=== PATIENT | male | born 1970 | race Caucasian/White ===

== ENCOUNTER 2016-12-12 09:48 | Emergency (ER) | payer OTHER ==
[2016-12-12 10:05] VITALS: BP 140/103; PULSE 80; RESP 18; TEMP 98.8; O2SAT 96
[2016-12-12] MEDS ORDERED: NS 1,000 ML IV ONE (10:07)
--- NOTE | 2016-12-12 10:10 | EDPHY ---
H & P Chief Complaint Nursing Narrative: LLQ ABD PAIN STARTED 6AM WITH LEFT FLANK PAIN , RADIATION TO LEFT GROIN, +NAUSEA, DENIES FEVERS. CONCERNED FOR KIDNEY STONE Time Seen by Provider: 12/12/16 09:59 HPI/ROS: CHIEF COMPLAINT: Abdominal pain HISTORY OF PRESENT ILLNESS: Patient is a 46-year-old man who comes to the Urgent Care complaining of left lower quadrant pain that radiates to his groin. He also has lower back pain bilaterally. He states that it began around 6:00 a.m. this morning. He has been nauseous but has not vomited. He states that this is happened about 3 or 4 times before and typically resolve after a few hours. He presented here once before and was diagnosed with a probable kidney stone. He has never had any imaging done. He has not had a fever. No rash. No trauma. Neurologic deficits. REVIEW OF SYSTEMS: Constitutional: denies: chills, fever, recent illness, recent injury EENTM: denies: blurred vision, double vision, nose congestion Respiratory: denies: cough, shortness of breath Cardiac: denies: chest pain, irregular heart rate, lightheadedness, palpitations Gastrointestinal/Abdominal: See HPI Genitourinary: denies: dysuria, frequency, hematuria, pain Musculoskeletal: denies: joint pain, muscle pain Skin: denies: lesions, rash, jaundice, bruising Neurological: denies: headache, numbness, paresthesia, tingling, dizziness, weakness Hematologic/Lymphatic: denies: blood clots, easy bleeding, easy bruising Immunologic/allergic: denies: HIV/AIDS, transplant EXAM: GENERAL: Well-appearing, well-nourished and in no acute distress. HEAD: Atraumatic, normocephalic. EYES: Pupils equal round and reactive to light, extraocular movements intact, sclera anicteric, conjunctiva are normal. ENT: TMs normal, nares patent, oropharynx clear without exudates. Moist mucous membranes. NECK: Normal range of motion, supple without lymphadenopathy or JVD. LUNGS: Breath sounds clear to auscultation bilaterally and equal. No wheezes rales or rhonchi. HEART: Regular rate and rhythm without murmurs, rubs or gallops. ABDOMEN: Moderate left lower quadrant tenderness, normal exam, BACK: Bilateral CVA pain, no tenderness EXTREMITIES: Normal range of motion, no pitting or edema. No clubbing or cyanosis. NEUROLOGICAL: Cranial nerves II through XII grossly intact. Normal speech, normal gait. 5/5 strength, normal movement in all extremities, normal sensation PSYCH: Normal mood, normal affect. SKIN: Warm, dry, normal turgor, no visible rashes or lesions. Source: Patient Exam Limitations: No limitations - Medical/Surgical History Hx Asthma: No Hx Chronic Respiratory Disease: No Hx Diabetes: No Hx Cardiac Disease: No Hx Renal Disease: No Hx Cirrhosis: No Hx Alcoholism: No Hx HIV/AIDS: No Hx Splenectomy or Spleen Trauma: No Other PMH: Frequent ear infections as a child,. surg-tonsilectomy,oral - Family History Significant Family History: No pertinent family hx - Social History Smoking Status: Never smoked Alcohol Use: None Drug Use: None Constitutional: Initial Vital Signs Temperature (C) 37.1 C 12/12/16 09:55 Heart Rate 80 12/12/16 09:55 Respiratory Rate 18 12/12/16 09:55 Blood Pressure 140/103 H 12/12/16 09:55 O2 Sat (%) 96 12/12/16 09:55 O2 Delivery Mode Room Air Allergies/Adverse Reactions: No Known Allergies Allergy (Verified 12/12/16 10:01) Home Medications: Medication Instructions Recorded No Medications [No Meds] 09/08/13 Amoxicillin/Clavulanate Pot 875 mg PO BID #14 tab 12/12/16 [Augmentin 875Mg] Medical Decision Making - Diagnostics Imaging: Imaging Impressions Abdomen/Pelvis CT 12/12/16 10:08 Impression: 1. Sigmoid diverticulosis without definite evidence of diverticulitis. 2. Mild diffuse bladder wall thickening, which could be related to underdistention or inflammation. 3. Moderate stool in the proximal colon. 4. No renal stones or obstructive uropathy. 5. Mild annular bulges at L4-L5 and L5-S1. 6. Additional findings as above. Findings discussed with Zach Vieira on December 12, 2016 at 11:01 a.m. Attention: This CT examination is specifically designed to evaluate patients who are clinically suspected of having acute obstructive uropathy. This examination does not use radiographic contrast, and as such, provides only a limited evaluation of the abdomen, pelvis and retroperitoneum. If there is further clinical suspicion for pathological conditions other than obstructive uropathy, a complete CT evaluation of the abdomen and pelvis utilizing intravenous and oral contrast should be considered. ED Course/Re-evaluation: Patient declines pain or nausea medications. I will obtain a CT scan to confirm the diagnosis of what is likely a kidney stone. Will also obtain lab work and urinalysis. 11:10 a.m. the patient states that his symptoms have resolved. His abdominal exam is nontender. His CT scan shows diverticulitis but no obvious diverticulitis. No kidney stone. No blood in his urine. Because of his tenderness and location of the pain I will treat him for diverticulitis although it is likely mild. He may have passed the stone although there is typically evidence of blood in the urine. He understands that the diagnosis is not specific. He is happy with this plan and declines further workup or testing. He will follow up within 24 hours if his symptoms return. Differential Diagnosis: Partial list of the Differential diagnosis considered include but were not limited to; diverticulitis, kidney stone, urinary tract infection and although unlikely based on the history and physical exam, I also considered low back pain , sciatica, testicular torsion. I discussed these differential diagnoses and the plan with the patient as well as the usual and expected course. The patient understands that the diagnosis is provisional and that in medicine we are not always correct and that further workup is often warranted. Usual and customary warnings were given. All of the patient's questions were answered. The patient was instructed to return to the emergency department should the symptoms at all worsen or return, otherwise to followup with the physician as we discussed. - Data Points Laboratory Results: Laboratory Results 12/12/16 10:15 12/12/16 10:15 12/12/16 12/12/16 12/12/16 10:15 10:15 10:05 WBC 5.73 10^3/uL 10^3/uL (3.80-9.50) RBC 4.67 10^6/uL 10^6/uL (4.40-6.38) Hgb 15.5 g/dL g/dL (13.7-17.5) Hct 44.5 % % (40.0-51.0) MCV 95.3 fL fL (81.5-99.8) MCH 33.2 pg pg (27.9-34.1) MCHC 34.8 g/dL g/dL (32.4-36.7) RDW 11.8 % % (11.5-15.2) Plt Count 199 10^3/uL 10^3/uL (150-400) MPV 9.1 fL fL (8.7-11.7) Neut % (Auto) 63.6 % % (39.3-74.2) Lymph % (Auto) 24.1 % % (15.0-45.0) Mineral % (Auto) 8.2 % % (4.5-13.0) Eos % (Auto) 2.8 % % (0.6-7.6) Baso % (Auto) 1.0 % % (0.3-1.7) Nucleat RBC Rel Count 0.0 % % (0.0-0.2) Absolute Neuts (auto) 3.64 10^3/uL 10^3/uL (1.70-6.50) Absolute Lymphs (auto) 1.38 10^3/uL 10^3/uL (1.00-3.00) Absolute Monos (auto) 0.47 10^3/uL 10^3/uL (0.30-0.80) Absolute Eos (auto) 0.16 10^3/uL 10^3/uL (0.03-0.40) Absolute Basos (auto) 0.06 10^3/uL 10^3/uL (0.02-0.10) Absolute Nucleated RBC 0.00 10^3/uL 10^3/uL (0-0.01) Immature Gran % 0.3 % % (0.0-1.1) Immature Gran # 0.02 10^3/uL 10^3/uL (0.00-0.10) Sodium 140 mEq/L mEq/L (134-144) Potassium 4.4 mEq/L mEq/L (3.5-5.2) Chloride 103 mEq/L mEq/L (97-110) Carbon Dioxide 25 mEq/l mEq/l (22-31) Anion Gap 12 mEq/L mEq/L (8-16) BUN 21 mg/dL mg/dL (7-23) Creatinine 0.9 mg/dL mg/dL (0.7-1.3) Estimated GFR > 60 Glucose 96 mg/dL mg/dL (70-100) Calcium 9.6 mg/dL mg/dL (8.5-10.4) Total Bilirubin 1.3 mg/dL mg/dL (0.1-1.4) Conjugated Bilirubin 0.3 mg/dL mg/dL (0.0-0.5) Unconjugated Bilirubin 1.0 mg/dL mg/dL (0.0-1.1) AST 32 IU/L IU/L (17-59) ALT 34 IU/L IU/L (21-72) Alkaline Phosphatase 50 IU/L IU/L (38-126) Total Protein 7.2 g/dL g/dL (6.3-8.2) Albumin 4.2 g/dL g/dL (3.5-5.0) Lipase 112.0 IU/L IU/L (23-300) Urine Color YELLOW Urine Appearance HAZY Urine pH 7.5 (5.0-7.5) Ur Specific [place] 1.015 (1.002-1.030) Urine Protein NEGATIVE (NEGATIVE) Urine Ketones NEGATIVE (NEGATIVE) Urine Blood NEGATIVE (NEGATIVE) Urine Nitrate NEGATIVE (NEGATIVE) Urine Bilirubin NEGATIVE (NEGATIVE) Urine Urobilinogen 0.2 EU EU (0.2-1.0) Ur Leukocyte Esterase NEGATIVE (NEGATIVE) Ur Culture Indicated? NOT INDICATED (NI) Urine Glucose NEGATIVE (NEGATIVE) Medications Given: Discontinued Medications Sodium Chloride (Ns) 1,000 mls @ 0 mls/hr IV ONCE ONE PRN Reason: Wide Open Stop: 12/12/16 10:08 Last Admin: 12/12/16 10:51 Dose: 1,000 mls Departure - Departure Disposition: Home, Routine, Self-Care Clinical Impression: Abdominal pain Qualifiers: Abdominal location: left lower quadrant Qualified Code(s): R10.32 - Left lower quadrant pain Condition: Fair Instructions: Abdominal Pain (ED) Referrals: Hao Ricardo MD [Primary Care Provider] - As per Instructions Prescriptions: Amoxicillin/Clavulanate Pot [Augmentin 875Mg] 875 mg PO BID #14 tab
[2016-12-12 10:13] LABS: COLOR YELLOW; LEUKOCYTE ESTERASE,URINE NEGATIVE (NEGATIVE); NITRITE,URINE NEGATIVE (NEGATIVE); PH,URINE 7.5 (5.0-7.5)
[2016-12-12 10:22] LABS: % IMMATURE GRANULYOCYTES 0.3 % (0.0-1.1); ABSOLUTE IMMATURE GRANULOCYTES 0.02 10^3/uL (0.00-0.10); ADD DIFF? NO; ADD MORPH? NO; ADD SCAN? NO; ATYPICAL LYMPHOCYTE FLAG 10 (0-99); FRAGMENT RBC FLAG 0 (0-99); HEMATOCRIT 44.5 % (40.0-51.0); HEMOGLOBIN 15.5 g/dL (13.7-17.5); LEFT SHIFT FLG 0 (0-99); LIPEMIA HEMOLYSIS FLAG 90 (0-99); MEAN CELL HEMOGLOBIN 33.2 pg (27.9-34.1); MEAN CELL HEMOGLOBIN CONCENTR. 34.8 g/dL (32.4-36.7); MEAN CELL VOLUME 95.3 fL (81.5-99.8); MEAN PLATELET VOLUME 9.1 fL (8.7-11.7); PLATELET CLUMPS FLAG 0 (0-99); PLATELET COUNT 199 10^3/uL (150-400); RED BLOOD CELL COUNT 4.67 10^6/uL (4.40-6.38); RED CELL DISTRIBUTION WIDTH 11.8 % (11.5-15.2)
[2016-12-12 10:42] LABS: ALANINE AMINOTRANSFERASE 34 IU/L (21-72); ALBUMIN 4.2 g/dL (3.5-5.0); ALKALINE PHOSPHATASE 50 IU/L (38-126); ANION GAP 12 mEq/L (8-16); ASPARTATE AMINOTRANSFERASE 32 IU/L (17-59); BILIRUBIN,TOTAL 1.3 mg/dL (0.1-1.4); BILIRUBIN-CONJUGATED 0.3 mg/dL (0.0-0.5); CALCIUM 9.6 mg/dL (8.5-10.4); CARBON DIOXIDE 25 mEq/l (22-31); CHLORIDE 103 mEq/L (97-110); CREATININE 0.9 mg/dL (0.7-1.3); GLOMERULAR FILTRATION RATE > 60; GLUCOSE 96 mg/dL (70-100); POTASSIUM 4.4 mEq/L (3.5-5.2); SODIUM 140 mEq/L (134-144); TOTAL PROTEIN 7.2 g/dL (6.3-8.2)
== END 2016-12-12 11:40 | disposition home or self-care (01) ==
LOC: CED 09:48
DX: R10.32 Left lower quadrant pain (principal)
CPT/HCPCS: 74176-PO; 80048-PO; 80076-PO; 81003-PO; 83690-PO; 85025-PO; 96360-PO; 99215-PO; G0463-PO